=== PATIENT | male | born 1980 ===

== ENCOUNTER 2017-02-19 10:18 | Emergency (ER) | payer BC ==
[2017-02-19 10:23] VITALS: TEMP 98; O2SAT 98; BMI 39.9
[2017-02-19 10:32] VITALS: BP 146/90; PULSE 74; RESP 20
--- NOTE | 2017-02-19 10:46 | ED PDOC ---
HPI: General Adult Time Seen by Provider: 02/19/17 10:29 Chief Complaint (Nursing): Abnormal Skin Integrity Chief Complaint (Provider): neck swelling History Per: Patient (36 y/o male here with neck swelling noted by girlfriend this week. Denies any pain/fever/chills. Has additional complaint of ongoing nasal congestion related to pollen (works outdoors) despite of use of flonase/ zyrtec. 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 Has had xry wnl.) Past Medical History Reviewed: Historical Data, Nursing Documentation, Vital Signs Vital Signs: Last Vital Signs Temp 98 F 02/19/17 10:29 Pulse 74 02/19/17 10:29 Resp 20 02/19/17 10:29 BP 146/90 02/19/17 10:29 Pulse Ox 98 02/19/17 10:29 - Family History Family History: States: No Known Family Hx - Home Medications Home Medications: Ambulatory Orders Medication Instructions Recorded Ibuprofen [Motrin] 600 mg PO Q8 PRN #15 tab 02/19/17 - Allergies Allergies/Adverse Reactions: Allergies Allergy/AdvReac Type Severity Reaction Status Date / Time No Known Allergies Allergy Verified 02/19/17 10:29 Review of Systems ROS Statement: Except As Marked, All Systems Reviewed And Found Negative Physical Exam - Reviewed Nursing Documentation Reviewed: Yes Vital Signs Reviewed: Yes - Physical Exam Appears: Positive for: Well, Non-toxic, No Acute Distress Head Exam: Positive for: ATRAUMATIC, NORMAL INSPECTION, NORMOCEPHALIC Skin: Positive for: Normal Color, Warm, DRY Eye Exam: Positive for: EOMI, Normal appearance, PERRL ENT: Positive for: Nasal Congestion. Negative for: Normal ENT Inspection Neck: Positive for: Painless ROM. Negative for: Normal (2 cm region of swelling consistent with lipoma right posterior neck by base ) Cardiovascular/Chest: Positive for: Regular Rate, Rhythm Respiratory: Positive for: CNT, Normal Breath Sounds Gastrointestinal/Abdominal: Positive for: Normal Exam, Bowel Sounds, Soft Back: Positive for: Normal Inspection Extremity: Positive for: Normal ROM, Other (notes tenderness along lateral elbow bilateral radiating down forearms with supination and pronation.) Neurologic/Psych: Positive for: Alert, Oriented - ECG O2 Sat by Pulse Oximetry: 98 Disposition - Clinical Impression Clinical Impression: Lipoma, Seasonal rhinitis, Tendonitis - Patient ED Disposition Is Patient to be Admitted: No - Disposition Referrals: Bong Simpson MD [Staff Provider] - Disposition: Routine/Home Disposition Time: 10:49 Condition: FAIR Additional Instructions: TRY USE OF NASAL SALINE RINSE FROM PHARMACY Prescriptions: Ibuprofen [Motrin] 600 mg PO Q8 PRN #15 tab PRN Reason: Pain, Moderate (4-7) Instructions: Lipoma (ED), Tendinitis (ED), Allergic Rhinitis (ED)
== END 2017-02-19 11:23 | disposition home or self-care (01) ==
LOC: H.ER 10:18
DX: D17.9 Benign lipomatous neoplasm, unspecified (principal); J30.2 Other seasonal allergic rhinitis

== ENCOUNTER 2018-02-11 19:49 | Emergency (ER) | payer BC, OTHER ==
[2018-02-11 20:51] VITALS: BMI 40.3
[2018-02-11] MEDS ORDERED: Sodium Chloride 0.9% 1,000 ML IV SCH (21:45)
[2018-02-11] MEDS ORDERED: Iohexol 240 (50 ml) PO ONE (21:46)
[2018-02-11] MEDS ORDERED: Famotidine 20mg/50ml Premix IVPB STA (21:46)
[2018-02-11 21:51] LABS: VENOUS BLOOD GAS BASE EXCESS 1.7 mmol/L (0.0-2.0); VENOUS BLOOD GAS PCO2 45 mmHg (40-60); VENOUS BLOOD GAS PO2 18 mm/Hg (30-55); VENOUS BLOOD PH 7.39 (7.32-7.43)
--- NOTE | 2018-02-11 21:56 | ED PDOC ---
HPI: Abdomen Time Seen by Provider: 02/11/18 21:29 Chief Complaint (Nursing): Abdominal Pain Chief Complaint (Provider): abdominal pain History Per: Patient History/Exam Limitations: no limitations Onset/Duration Of Symptoms: Days (x3) Outside of [place] travel?: No Current Symptoms Are (Timing): Still Present Location Of Pain/Discomfort: RUQ Quality Of Discomfort: Cramping Associated Symptoms: Fever, Nausea, Diarrhea. denies: Vomiting, Back Pain, Chest Pain, Urinary Symptoms Additional Complaint(s): Andrew Rudolph is a 37 year old male, with no significant past medical history, who presents to the emergency department complaining of a crampy RUQ abdominal pain associated with nausea and non-bloody diarrhea onset for x3 days. Patient also reports body aches, mild headache and fever that started yesterday. Headache not worst in her life. No neck pain. Patient denies any new foods or recent travel. He denies any chest pain, back pain, shortness of breath, dysuria , testicular pain, dizziness, weakness, numbness or tingling. No further medical complaints. PMD: None provided. Past Medical History Reviewed: Historical Data, Nursing Documentation, Vital Signs Vital Signs: Last Vital Signs Temp 99.2 F 02/11/18 23:09 Pulse 110 H 02/11/18 23:09 Resp 19 02/11/18 23:09 BP 130/75 02/11/18 23:09 Pulse Ox 98 02/11/18 23:13 - Medical History PMH: No Chronic Diseases - Surgical History Surgical History: No Surg Hx - Family History Family History: States: No Known Family Hx - Social History Alcohol: None Drugs: Denies - Home Medications Home Medications: Ambulatory Orders Medication Instructions Recorded Ibuprofen [Motrin] 600 mg PO Q8 PRN #15 tab 02/19/17 - Allergies Allergies/Adverse Reactions: Allergies Allergy/AdvReac Type Severity Reaction Status Date / Time No Known Allergies Allergy Verified 02/11/18 20:51 Review of Systems ROS Statement: Except As Marked, All Systems Reviewed And Found Negative Constitutional: Positive for: Fever, Other (body aches) Cardiovascular: Negative for: Chest Pain Respiratory: Negative for: Shortness of Breath Gastrointestinal: Positive for: Nausea, Abdominal Pain (crampy RUQ), Diarrhea ( non bloody). Negative for: Vomiting Genitourinary Male: Negative for: Dysuria, Scrotal Pain Neurological: Positive for: Headache. Negative for: Weakness, Numbness, Dizziness Physical Exam - Reviewed Nursing Documentation Reviewed: Yes Vital Signs Reviewed: Yes - Physical Exam Appears: Positive for: Non-toxic Head Exam: Positive for: ATRAUMATIC, NORMOCEPHALIC Skin: Positive for: Normal Color, Warm, Dry Eye Exam: Positive for: Normal appearance, EOMI, PERRL ENT: Positive for: Normal ENT Inspection. Negative for: Nasal Congestion Neck: Positive for: Painless ROM, Supple Cardiovascular/Chest: Positive for: Regular Rate, Rhythm. Negative for: Murmur Respiratory: Positive for: Normal Breath Sounds. Negative for: Respiratory Distress Gastrointestinal/Abdominal: Positive for: Soft, Tenderness (diffused. No flank tenderness) Back: Positive for: Normal Inspection. Negative for: L CVA Tenderness, R CVA Tenderness, Vertebral Tenderness Extremity: Positive for: Normal ROM (upper and lower extremities). Negative for : Tenderness, Pedal Edema, Deformity, Swelling Neurologic/Psych: Positive for: Alert, Oriented. Negative for: Motor/Sensory Deficits - Laboratory Results Result Diagrams: 02/11/18 21:55 02/11/18 21:55 Interpretation Of Abn Labs: no acute - ECG ECG: Positive for: Interpreted By Me, Viewed By Me ECG Rhythm: Positive for: Normal QRS, Sinus Rhythm O2 Sat by Pulse Oximetry: 98 (RA) Pulse Ox Interpretation: Normal - Radiology X-Ray: Interpreted by Me, Viewed By Ar X-Ray Interpretation: No Acute Disease - CT Scan/US US Other Rad Studies (CT/US): Read By Radiologist Other Rad Interpretation: no acute - Progress ED Course And Treament: 2329: Dr. Jasmine to take over care. Fu on CT. Stable. AAOx3. Medical Decision Making Medical Decision Making: Time: 21:29 Initial Impression: abdominal pain Initial Plan: --VBG --Abd Pelvis PO & IV Contrast [CT] --EKG --Alcohol serum --CMP --Lipase --Magnesium --Phosphorus --Troponin I --Urine dipstick --CBC w/ differential --PTT --PT --Chest portable [RAD] --Sodium Chloride 1,000 ml IV 1,000 mls/hr --Toradol 15 mg IVP --Zofran Inj 4 mg IV --Blood culture --Urine culture --Urinalysis --Abdomen Limited [US] --Reevaluation 2310 US ABD FINDINGS: Liver: The liver is increased in echogenicity suggesting fatty infiltration. Gallbladder: Unremarkable. No gallstones. Gallbladder wall is normal measuring 2 mm. Negative Leong's sign. Common bile duct: Unremarkable as visualized measuring 4 mm. No stones. No dilation. Pancreas: The pancreas is poorly-visualized due to overlying bowel gas. Right kidney: Unremarkable measuring 11.3 cm. No stones. No solid mass. No hydronephrosis. IMPRESSION: No acute right upper quadrant abnormality. Fatty liver. ~ Scribe Attestation: Documented by Anselmo Mcguire and Frieda Zaragoza, acting as a scribe for Jose Abarca MD. Provider Scribe Attestation: All medical record entries made by the Scribe were at my direction and personally dictated by me. I have reviewed the chart and agree that the record accurately reflects my personal performance of the history, physical exam, medical decision making, and the department course for this patient. I have also personally directed, reviewed, and agree with the discharge instructions and disposition. Disposition - Clinical Impression Clinical Impression: Abdominal pain - Patient ED Disposition Is Patient to be Admitted: Transfer of Care - Disposition Disposition: Transfer of Care Disposition Time: 23:28 Condition: STABLE
[2018-02-11] MEDS ORDERED: Famotidine 20mg/50ml 20 MG/50 ML BAG IVPB ONE (21:59)
[2018-02-11] MEDS ORDERED: Iohexol 240 (50 ml) ONE (21:59)
[2018-02-11 22:04] LABS: BASO % 0.3 % (0.0-2.0); EOS % 0.2 % (0.0-4.0); HEMOGLOBIN 15.7 g/dL (12.0-18.0); LYMPH # 0.6 K/uL (1.0-4.3); LYMPH % 8.3 % (20.0-40.0); MEAN CELL VOLUME 87.4 fl (80.0-94.0); MEAN CORPUSCULAR HEMOGLOBIN 30.1 pg (27.0-31.0); MEAN CORPUSCULAR HGB CONC 34.4 g/dL (33.0-37.0); MEAN PLATELET VOLUME 9.5 fl (7.2-11.7); MONO # 0.7 K/uL (0.0-0.8); MONO % 9.6 % (0.0-10.0); NEUT % 81.6 % (50.0-75.0); NRBC % 0.1 % (0.0-0.0); PLATELET COUNT 257 K/uL (130-400); RBC 5.21 Mil/uL (4.40-5.90); RED CELL DISTRIBUTION WIDTH 13.1 % (11.5-14.5); WHITE BLOOD COUNT 7.3 K/uL (4.8-10.8)
[2018-02-11 22:19] LABS: ALB/GLOB RATIO 1.1 (1.0-2.1); ALBUMIN 4.6 g/dL (3.5-5.0); ALT/SGPT 78 U/L (21-72); AST/SGOT 47 U/L (17-59); BLOOD UREA NITROGEN 17 mg/dl (9-20); CALCIUM 8.9 mg/dL (8.4-10.2); GFR AFRICAN-AMERICAN > 60; GFR NON-AFRICAN AMERICAN > 60; LIPASE 77 U/L (23-300)
[2018-02-11 22:40] LABS: INR 1.1 (0.9-1.2); PARTIAL THROMBOPLASTIN TIME 32.5 Seconds (25.6-37.1); PROTHROMBIN TIME 12.4 Seconds (9.8-13.1)
[2018-02-11 23:10] VITALS: TEMP 99.2
[2018-02-11 23:12] LABS: BANDS 4 % (0-2); LYMPHOCYTE 11 % (20-50); MONOCYTE 10 % (0-10); NEUTROPHIL 75 % (42-75); PLATELET ESTIMATE NORMAL (NORMAL); TOTAL CELLS COUNTED 100
--- NOTE | 2018-02-11 23:12 | US ---
EXAM: US Abdomen Limited, Right Upper Quadrant CLINICAL HISTORY: 37 years old, male; Pain; Abdominal pain; Epigastric; Additional info: Abd pain ruq and epigastric TECHNIQUE: Real-time ultrasound of the right upper quadrant with image documentation. COMPARISON: No relevant prior studies available. FINDINGS: Liver: The liver is increased in echogenicity suggesting fatty infiltration. Gallbladder: Unremarkable. No gallstones. Gallbladder wall is normal measuring 2 mm. Negative Leong's sign. Common bile duct: Unremarkable as visualized measuring 4 mm. No stones. No dilation. Pancreas: The pancreas is poorly-visualized due to overlying bowel gas. Right kidney: Unremarkable measuring 11.3 cm. No stones. No solid mass. No hydronephrosis. IMPRESSION: No acute right upper quadrant abnormality. Fatty liver.
[2018-02-11 23:13] LABS: MICROCYTOSIS SLIGHT
--- NOTE | 2018-02-12 00:24 | ED PDOC ---
- Laboratory Results Result Diagrams: 02/11/18 21:55 02/11/18 21:55 - ECG O2 Sat by Pulse Oximetry: 98 (RA) Medical Decision Making Medical Decision Makin Patient signed out to this provider from Dr. Abarca pending CT. 0219 [address] FINDINGS: Lung bases: Unremarkable. No mass. No consolidation. Heart: Small focal pericardial effusion seen on image 8 series 3. Mediastinum: Small hiatal hernia. ABDOMEN: Liver: Enlarged fatty liver. Gallbladder and bile ducts: Contracted gallbladder. Pancreas: Unremarkable. No mass. No ductal dilation. Spleen: Unremarkable. No splenomegaly. Adrenals: Unremarkable. No mass. Kidneys and ureters: Unremarkable. No solid mass. No hydronephrosis. Stomach and bowel: There is distention of small bowel loops with bowel wall thickening representing infectious or inflammatory enteritis. There may be borderline thickening of colonic wall. PELVIS: Appendix: Normal appendix. Bladder: Partially decompressed bladder with bladder wall thickening. Correlation with urinalysis is recommended only if clinical cystitis is suspected. Reproductive: Enlarged prostate gland. ABDOMEN and PELVIS: Intraperitoneal space: There is intraperitoneal fluid in the right anterior pelvis. There is fluid in the right paracolic gutter. No free air. Bones/joints: No acute fracture. No dislocation. Soft tissues: There is a fat-containing umbilical hernia. Vasculature: Unremarkable. No abdominal aortic aneurysm. Lymph nodes: Subcentimeter mesenteric lymph nodes. IMPRESSION: 1. There is distention of small bowel loops with bowel wall thickening representing infectious or inflammatory enteritis/inflammatory bowel disease. 2. There is intraperitoneal fluid in the right anterior pelvis. Correlation with internal medicine evaluation and further workup or followup as recommended by patient's clinical data. 0225 Upon re-evaluation patient is feeling much better and is tolerating PO. Patient advised to follow up with PCP in 1-2 days and was given copy of CT/US reports' non-acute findings for the PCP's reference. Return precautions given and patient verbalizes understanding. Patient is stable for discharge. Dx: gastroenteritis Scribe Attestation: Documented by Frieda Zaragoza acting as a scribe for Bridger Jasmine MD. Scribnilam Attestation: All medical record entries made by the Scribe were at my direction and personally dictated by me. I have reviewed the chart and agree that the record accurately reflects my personal performance of the history, physical exam, medical decision making, and the department course for this patient. I have also personally directed, reviewed, and agree with the discharge instructions and disposition. Disposition - Clinical Impression Clinical Impression: Gastroenteritis - POA Present On Arrival: None - Disposition Referrals: Jaden Mota MD [Primary Care Provider] - Disposition: Routine/Home Disposition Time: 02:25 Condition: IMPROVED Prescriptions: L.acidoph,Paracasei, B.lactis [Probiotic] 1 each PO DAILY #12 capsule Instructions: Viral Gastroenteritis Forms: [facility] (Citizen Of [place]) Print Language: INDONESIAN
[2018-02-12] MEDS ORDERED: Sodium Chloride 0.9% 50 ML IV ONE (01:09)
[2018-02-12] MEDS ORDERED: Iohexol 300 100 ML IJ ONE (01:09)
[2018-02-12 01:31] LABS: SQUAMOUS EPITHIAL < 1 /hpf (0-5); URINE BACTERIA RARE (<OCC); URINE BILIRUBIN NEGATIVE (NEGATIVE); URINE BLOOD NEGATIVE (NEGATIVE); URINE CLARITY SLIGHTY-CLOUDY (Clear); URINE COLOR YELLOW (YELLOW); URINE GLUCOSE (UA) NEG (Normal); URINE LEUKOCYTE ESTERASE NEG Leu/uL (Negative); URINE PROTEIN 30 mg/dL (NEGATIVE); URINE UROBILINOGEN 0.2-1.0 mg/dL (0.2-1.0)
--- NOTE | 2018-02-12 02:19 | CT ---
EXAM: CT Abdomen and Pelvis With Intravenous Contrast CLINICAL HISTORY: 37 years old, male; Pain; Abdominal pain; Localized; Right upper quadrant (ruq); Additional info: Abd pain TECHNIQUE: Axial computed tomography images of the abdomen and pelvis with intravenous contrast. All CT scans at this facility use one or more dose reduction techniques, viz.: automated exposure control; ma/kV adjustment per patient size (including targeted exams where dose is matched to indication; i.e. head); or iterative reconstruction technique. 665 images are submitted. Axial images are submitted in lung and soft tissue windows. Oral contrast was administered. Coronal and sagittal reformatted images were created and reviewed. Axial reformatted images were created and reviewed. CONTRAST: 95 mL of [id number] administered intravenously. COMPARISON: US - ABDOMEN LIMITED 2018-02-11 23:07 FINDINGS: Lung bases: Unremarkable. No mass. No consolidation. Heart: Small focal pericardial effusion seen on image 8 series 3. Mediastinum: Small hiatal hernia. ABDOMEN: Liver: Enlarged fatty liver. Gallbladder and bile ducts: Contracted gallbladder. Pancreas: Unremarkable. No mass. No ductal dilation. Spleen: Unremarkable. No splenomegaly. Adrenals: Unremarkable. No mass. Kidneys and ureters: Unremarkable. No solid mass. No hydronephrosis. Stomach and bowel: There is distention of small bowel loops with bowel wall thickening representing infectious or inflammatory enteritis. There may be borderline thickening of colonic wall. PELVIS: Appendix: Normal appendix. Bladder: Partially decompressed bladder with bladder wall thickening. Correlation with urinalysis is recommended only if clinical cystitis is suspected. Reproductive: Enlarged prostate gland. ABDOMEN and PELVIS: Intraperitoneal space: There is intraperitoneal fluid in the right anterior pelvis. There is fluid in the right paracolic gutter. No free air. Bones/joints: No acute fracture. No dislocation. Soft tissues: There is a fat-containing umbilical hernia. Vasculature: Unremarkable. No abdominal aortic aneurysm. Lymph nodes: Subcentimeter mesenteric lymph nodes. IMPRESSION: 1. There is distention of small bowel loops with bowel wall thickening representing infectious or inflammatory enteritis/inflammatory bowel disease. 2. There is intraperitoneal fluid in the right anterior pelvis. Correlation with internal medicine evaluation and further workup or followup as recommended by patient's clinical data.
[2018-02-12 02:41] VITALS: BP 120/69; PULSE 101; RESP 17; O2SAT 97
--- NOTE | 2018-02-12 09:47 | RAD ---
HISTORY: Sepsis Patient COMPARISON: No prior. FINDINGS: LUNGS: No active pulmonary disease. PLEURA: No significant pleural effusion identified, no pneumothorax apparent. CARDIOVASCULAR: Normal. OSSEOUS STRUCTURES: No significant abnormalities. VISUALIZED UPPER ABDOMEN: Normal. OTHER FINDINGS: None. IMPRESSION: No active disease.
--- NOTE | 2018-02-12 10:20 | CARD ---
APPROVED REPORT EKG Measurement Heart [id number] <Conclusion> Sinus tachycardia Possible inferior infarct, age undetermined Abnormal ECG
== END 2018-02-12 02:58 | disposition home or self-care (01) ==
LOC: H.ER 19:49
DX: K52.9 Noninfective gastroenteritis and colitis, unspecified (principal); R50.9 Fever, unspecified; N40.1 Benign prostatic hyperplasia with lower urinary tract symptoms
CPT/HCPCS: 71045; 74177; 76705; 80053; 80320; 81003; 82803; 83690; 83735; 84100; 84484; 85025; 85610; 85730; 87040; 87086; 93005; 96361; 96374; 96375; 99283; J1885; J2405; J7030; Q9966; Q9967